=== PATIENT | male | born 1950 | race African-American/Black ===

== ENCOUNTER 2023-07-04 10:44 | Inpatient (IN) | payer MEDICARE ==
[~2023-07-04] VITALS: Ht 182.9 cm; Wt 79.8 kg
[2023-07-04] MEDS ORDERED: IV NS 0.9% 1,000 ML BAG IV ONE (11:30)
[2023-07-04 11:58] LABS: BASOPHILS % (AUTO) 0.7 % (0.0-2.0); EOSINOPHILS # (AUTO) 0.2 K/uL (0.0-0.7); HEMATOCRIT 44 % (39-51); HEMOGLOBIN 14.4 g/dL (13.5-17.5); LYMPHOCYTES # (AUTO) 0.6 K/uL (0.8-4.8); LYMPHOCYTES % (AUTO) 8.9 % (20.0-44.0); MEAN CORPUSCULAR HEMOGLOBIN 27 PG (26.0-33.0); MEAN CORPUSCULAR HGB CONC 33 g/dl (31.0-36.0); MEAN CORPUSCULAR VOLUME 81 fL (80-96); MONOCYTES # (AUTO) 0.8 K/uL (0.1-1.30); MONOCYTES % (AUTO) 12.1 % (2.0-12.0); NEUTROPHILS # (AUTO) 4.9 K/uL (1.8-8.9); NEUTROPHILS % (AUTO) 75.3 % (43.0-81.0); PLATELET COUNT (AUTO) 567 K/uL (150-450); RED BLOOD CELL COUNT(AUTO) 5.43 MIL/uL (4.5-6.0); RED CELL DISTRIBUTION WIDTH 15.2 % (11.5-15.0); WHITE BLOOD COUNT (AUTO) 6.5 K/uL (4.3-11.0)
[2023-07-04 12:07] LABS: CALCIUM, SERUM 8.8 mg/dL (8.5-10.1); CARBON DIOXIDE 32 mmol/L (21-32); CHLORIDE 99 mmol/L (98-107); CREATININE 1.4 mg/dL (0.6-1.3); GLUCOSE 131 mg/dL (74-106); SODIUM SERUM 135 mmol/L (136-145); UREA NITROGEN, BLOOD 19 mg/dL (7-18)
[2023-07-04 12:08] LABS: INR 1.07 (0.91-1.10); PROTHROMBIN TIME 11.3 SECS (9.2-11.1)
[2023-07-04 12:14] LABS: ALANINE AMINOTRANSFERASE 72 U/L (12-78); ALBUMIN 3.3 g/dL (3.4-5.0); ALKALINE PHOSPHATASE 92 U/L (46-116); ASPARTATE AMINOTRANSFERASE 110 U/L (15-37); BILIRUBIN,DIRECT 0.3 mg/dL (0.0-0.2); LIPASE 43 U/L (16-77); TOTAL PROTEIN, SERUM 7.7 g/dL (6.4-8.2)
[2023-07-04 12:15] LABS: POTASSIUM 2.8 mmol/L (3.5-5.1)
[2023-07-04 12:20] LABS: MAGNESIUM 2.2 mg/dL (1.8-2.4)
[2023-07-04 12:26] LABS: THYROID STIMULATING HORMONE 1.071 uIU/mL (0.358-3.74)
[2023-07-04] MEDS ORDERED: POTASSIUM CL. PREMIX PERIPHER. 200 ML ONE (12:27)
[2023-07-04] MEDS ORDERED: POTASSIUM CHLORIDE 20 MEQ TAB.PRT.SR PO ONE ×3 (12:30→22:18)
[2023-07-04] MEDS: POTASSIUM CL. PREMIX PERIPHER. 50 ML IV SCH ×4 (12:30→16:05)
[2023-07-04] MEDS ORDERED: CARV12.5 PO (13:16)
[2023-07-04] MEDS ORDERED: TAMS-12 PO (13:16)
[2023-07-04] MEDS ORDERED: ATOR20TA PO (13:16)
[2023-07-04] MEDS ORDERED: FURO-145 PO (13:16)
[2023-07-04] MEDS ORDERED: CHOL200059 PO (13:16)
[2023-07-04] MEDS ORDERED: FURO-144 PO (13:16)
[2023-07-04] MEDS ORDERED: CLON0.1T PO (13:16)
[2023-07-04] MEDS ORDERED: LOSA100T31 PO (13:16)
[2023-07-04] MEDS ORDERED: METH5TAB6 PO (13:16)
[2023-07-04] MEDS ORDERED: DONE5TAB34 PO (13:16)
[2023-07-04] MEDS ORDERED: NIFE-34 PO (13:16)
[2023-07-04] MEDS ORDERED: CLOP75TA15 PO (13:16)
[2023-07-04 13:49] LABS: APPEARANCE,URINE CLOUDY (CLEAR); BILIRUBIN,URINE NEGATIVE (NEGATIVE); BLOOD, URINE 2+ Ery/uL (NEGATIVE); COLOR,URINE DARK YELLOW (YELLOW); KETONES,URINE NEGATIVE (NEGATIVE); LEUKOCYTE ESTERASE ,URINE 3+ (NEGATIVE); NITRITE, URINE NEGATIVE (NEGATIVE); PH,URINE 6.5 (5.0-8.0); PROTEIN,URINE TRACE mg/dl (NEGATIVE); UGLUCOSE NEGATIVE (NEGATIVE)
[2023-07-04 14:00] LABS: ADD URINE CULTURE YES; BACTERIA,URINE Few /HPF (None Seen); SQUAMOUS EPITHELIAL CELL,UR Rare /HPF (None Seen); WBC,URINE 21-50 /HPF (0-3)
[2023-07-04] MEDS ORDERED: ENOXAPARIN SODIUM 80 MG/0.8 ML DISP.SYRIN SQ ONE ×2 (14:30→14:46)
[2023-07-04] MEDS ORDERED: CEFEPIME 1 GM in IV D5W 50 ML IV ONE (14:30)
[2023-07-04 17:04] VITALS: O2SAT 96
[2023-07-04] MEDS ORDERED: MAG HYDROX/AL HYDROX/SIMETH 30 ML UDC PO PRN (19:00)
[2023-07-04] MEDS ORDERED: ONDANSETRON HCL/PF 4 MG/2 ML VIAL IVP PRN (19:00)
[2023-07-04] MEDS ORDERED: Z GUARD REMEDY 4 OZ OINT TP PRN (19:00)
[2023-07-04] MEDS ORDERED: MAGNESIUM HYDROXIDE 30 ML UDC PO PRN (19:00)
[2023-07-04] MEDS ORDERED: CEFTRIAXONE 1 G in IV D5W 50 ML IV SCH (19:00)
[2023-07-04] MEDS ORDERED: ACETAMINOPHEN 325 MG TABLET PO PRN (19:00)
[2023-07-04 19:45] LABS: CHOLESTEROL 127 mg/dL (<200); HDL CHOLESTEROL 46 mg/dL (40-60); LDL 64 mg/dL (0-99); TRIGLYCERIDES 52 mg/dL (30-150)
[2023-07-04] MEDS: Potassium Chloride 40 MEQ in IV NS 0.9% 1,000 ML IV SCH (21:36)
[2023-07-04] MEDS: CLONIDINE HCL 0.1 MG TABLET PO SCH (21:38)
[2023-07-04] MEDS ORDERED: TAMSULOSIN 0.4 MG CAP.SR.24H PO SCH (22:00)
[2023-07-04] MEDS ORDERED: ATORVASTATIN 40 MG TABLET PO SCH (22:00)
[2023-07-04] MEDS ORDERED: DONEPEZIL 5 MG TABLET PO SCH (22:00)
[2023-07-04] MEDS ORDERED: NIFEDIPINE XL 60 MG TAB.ER.24 PO SCH (22:00)
[2023-07-04] MEDS: POTASSIUM CHLORIDE 20 MEQ TAB.PRT.SR PO SCH ×2 (22:20→23:39)
[2023-07-05] MEDS: POTASSIUM CHLORIDE 20 MEQ TAB.PRT.SR PO SCH (00:56)
[2023-07-05] MEDS ORDERED: hydrALAZINE HCL IV 20 MG VIAL IV PRN (05:30)
[2023-07-05 06:31] VITALS: BP 154/93; TEMP 98; O2SAT 100
[2023-07-05 07:00] VITALS: BP 135/65; TEMP 98.2; O2SAT 100
[2023-07-05] MEDS ORDERED: PANTOPRAZOLE 40 MG TABLET.DR PO SCH (07:30)
[2023-07-05 07:44] LABS: ALBUMIN 2.6 g/dL (3.4-5.0); BILIRUBIN,TOTAL 0.7 mg/dL (0.2-1.0); CALCIUM, SERUM 8.1 mg/dL (8.5-10.1); CREATININE 1.2 mg/dL (0.6-1.3); MAGNESIUM 2.2 mg/dL (1.8-2.4); PHOSPHORUS 3.9 mg/dL (2.5-4.9); TOTAL PROTEIN, SERUM 6.3 g/dL (6.4-8.2)
[2023-07-05 07:47] LABS: BASOPHILS # (AUTO) 0.1 K/uL (0.0-0.2); BASOPHILS % (AUTO) 0.9 % (0.0-2.0); EOSINOPHILS # (AUTO) 0.3 K/uL (0.0-0.7); EOSINOPHILS % (AUTO) 4.9 % (0.0-6.0); HEMATOCRIT 40 % (39-51); HEMOGLOBIN 12.6 g/dL (13.5-17.5); LYMPHOCYTES # (AUTO) 0.9 K/uL (0.8-4.8); LYMPHOCYTES % (AUTO) 14.6 % (20.0-44.0); MEAN CORPUSCULAR HEMOGLOBIN 26 PG (26.0-33.0); MEAN CORPUSCULAR HGB CONC 32 g/dl (31.0-36.0); MEAN CORPUSCULAR VOLUME 83 fL (80-96); MONOCYTES # (AUTO) 0.9 K/uL (0.1-1.30); MONOCYTES % (AUTO) 14.3 % (2.0-12.0); NEUTROPHILS % (AUTO) 65.3 % (43.0-81.0); PLATELET COUNT (AUTO) 535 K/uL (150-450); RED BLOOD CELL COUNT(AUTO) 4.83 MIL/uL (4.5-6.0); WHITE BLOOD COUNT (AUTO) 6.1 K/uL (4.3-11.0)
[2023-07-05] MEDS: Potassium Chloride 40 MEQ in IV NS 0.9% 1,000 ML IV SCH (07:47)
[2023-07-05] MEDS: CLONIDINE HCL 0.1 MG TABLET PO SCH ×3 (08:17→16:08)
[2023-07-05] MEDS: CARVEDILOL 12.5 MG TABLET PO SCH ×2 (08:18→16:08)
[2023-07-05] MEDS ORDERED: CLOPIDOGREL BISULFATE 75 MG TABLET PO SCH (09:00)
[2023-07-05] MEDS ORDERED: LOSARTAN POTASSIUM 50 MG TABLET PO SCH (09:00)
[2023-07-05] MEDS ORDERED: METHIMAZOLE (5MG) 5 MG TABLET PO SCH (09:00)
[2023-07-05] MEDS ORDERED: CEFT1VIA15 IV (13:18)
[2023-07-05] MEDS ORDERED: PANT40TA49 PO (13:18)
[2023-07-05 16:00] VITALS: BP 127/57; TEMP 99.1; O2SAT 100
[2023-07-05 16:08] VITALS: BP 120/60
== END 2023-07-05 18:00 | disposition short-term general hospital (02) | DRG 643 ==
LOC: ER 10:46 → TELE 18:37
PROVIDERS: ADMIT Nurse Practitioner Acute Care; ATTEND Nurse Practitioner Acute Care
DX: E07.89 Other specified disorders of thyroid (principal); I21.4 Non-ST elevation (NSTEMI) myocardial infarction; N39.0 Urinary tract infection, site not specified; E87.1 Hypo-osmolality and hyponatremia; N17.9 Acute kidney failure, unspecified; I50.32 Chronic diastolic (congestive) heart failure; I69.351 Hemiplegia and hemiparesis following cerebral infarction affecting right dominant side; E05.90 Thyrotoxicosis, unspecified without thyrotoxic crisis or storm; I11.0 Hypertensive heart disease with heart failure; D75.838 Other thrombocytosis; E87.6 Hypokalemia; E88.09 Other disorders of plasma-protein metabolism, not elsewhere classified; I69.320 Aphasia following cerebral infarction; R74.01 Elevation of levels of liver transaminase levels; F03.90 Unspecified dementia, unspecified severity, without behavioral disturbance, psychotic disturbance, mood disturbance, and anxiety; R60.9 Edema, unspecified; J39.8 Other specified diseases of upper respiratory tract; M89.8X8 Other specified disorders of bone, other site
CPT/HCPCS: 36415; 70490-TC; 71045-TC; 71250-TC; 80048-TC; 80053-TC; 80061-TC; 80076-TC; 81001; 83690-TC; 83735-TC; 83880; 84100-TC; 84439-TC; 84443-TC; 84484-TC; 85025-TC; 85730-TC; 87086-TC; 93307-TC; 93971-TC; 97112-TC; 97530-TC; A4223; A4349; G0378; J0692; J0696; J1650; J3480; J7030; J7060

== ENCOUNTER 2023-07-07 16:20 | Inpatient (IN) | payer MEDICARE ==
[~2023-07-07] VITALS: Ht 170.2 cm; Wt 80.3 kg
[~2023-07-07 16:20] MED LIST: ATOR20TA PO; CARV12.5 PO; CEFT1VIA15 IV; CHOL200059 PO; CLON0.1T PO; CLOP75TA15 PO; DONE5TAB34 PO; FURO-145 PO; LOSA100T31 PO; METH5TAB6 PO; NIFE-34 PO; PANT40TA49 PO; TAMS-12 PO
[2023-07-07 16:45] VITALS: BP 112/11; TEMP 98.3; O2SAT 98
[2023-07-07 16:46] VITALS: BP 124/112; TEMP 98.3; O2SAT 98
[2023-07-07] MEDS ORDERED: ALEN70TA80 PO (16:49)
[2023-07-07 19:04] VITALS: BP 120/90; TEMP 98.3; O2SAT 89
[2023-07-07 19:05] VITALS: O2SAT 96
[2023-07-07] MEDS ORDERED: ACETAMINOPHEN 325 MG TABLET PO PRN (20:30)
[2023-07-07] MEDS ORDERED: Z GUARD REMEDY 4 OZ OINT TP PRN (20:30)
[2023-07-07] MEDS ORDERED: ONDANSETRON HCL/PF 4 MG/2 ML VIAL IVP PRN (20:30)
[2023-07-07] MEDS: ENOXAPARIN SODIUM 40 MG/0.4 ML DISP.SYRIN SQ SCH (21:00)
[2023-07-07] MEDS: CEPHALEXIN MONOHYDRATE 250 MG CAPSULE PO SCH (21:00)
[2023-07-07] MEDS: ATORVASTATIN 10 MG TABLET PO SCH (22:18)
[2023-07-07] MEDS: DONEPEZIL 5 MG TABLET PO SCH (22:19)
[2023-07-08 00:08] LABS: BASOPHILS # (AUTO) 0.1 K/uL (0.0-0.2); BASOPHILS % (AUTO) 2.3 % (0.0-2.0); EOSINOPHILS # (AUTO) 0.4 K/uL (0.0-0.7); HEMATOCRIT 38 % (39-51); HEMOGLOBIN 12.2 g/dL (13.5-17.5); LYMPHOCYTES # (AUTO) 0.6 K/uL (0.8-4.8); MEAN CORPUSCULAR HEMOGLOBIN 26 PG (26.0-33.0); MEAN CORPUSCULAR HGB CONC 32 g/dl (31.0-36.0); MEAN CORPUSCULAR VOLUME 83 fL (80-96); MONOCYTES # (AUTO) 0.5 K/uL (0.1-1.30); MONOCYTES % (AUTO) 8.8 % (2.0-12.0); NEUTROPHILS # (AUTO) 4.5 K/uL (1.8-8.9); NEUTROPHILS % (AUTO) 72.9 % (43.0-81.0); PLATELET COUNT (AUTO) 485 K/uL (150-450); RED BLOOD CELL COUNT(AUTO) 4.62 MIL/uL (4.5-6.0); RED CELL DISTRIBUTION WIDTH 15.4 % (11.5-15.0); WHITE BLOOD COUNT (AUTO) 6.2 K/uL (4.3-11.0)
[2023-07-08] MEDS: CEPHALEXIN MONOHYDRATE 250 MG CAPSULE PO SCH ×3 (05:00→21:08)
[2023-07-08] MEDS ORDERED: hydrALAZINE HCL IV 20 MG VIAL IV PRN (06:30)
[2023-07-08] MEDS ORDERED: ALENDRONATE 70 MG TABLET PO SCH (07:30)
[2023-07-08 07:41] LABS: BASOPHILS # (AUTO) 0.1 K/uL (0.0-0.2); BASOPHILS % (AUTO) 0.9 % (0.0-2.0); EOSINOPHILS # (AUTO) 0.3 K/uL (0.0-0.7); EOSINOPHILS % (AUTO) 4.4 % (0.0-6.0); HEMATOCRIT 39 % (39-51); HEMOGLOBIN 12.7 g/dL (13.5-17.5); LYMPHOCYTES # (AUTO) 0.8 K/uL (0.8-4.8); LYMPHOCYTES % (AUTO) 12.7 % (20.0-44.0); MEAN CORPUSCULAR HEMOGLOBIN 27 PG (26.0-33.0); MEAN CORPUSCULAR HGB CONC 32 g/dl (31.0-36.0); MEAN CORPUSCULAR VOLUME 82 fL (80-96); MONOCYTES # (AUTO) 0.6 K/uL (0.1-1.30); MONOCYTES % (AUTO) 9.1 % (2.0-12.0); NEUTROPHILS # (AUTO) 4.6 K/uL (1.8-8.9); NEUTROPHILS % (AUTO) 72.9 % (43.0-81.0); PLATELET COUNT (AUTO) 505 K/uL (150-450); RED BLOOD CELL COUNT(AUTO) 4.79 MIL/uL (4.5-6.0); RED CELL DISTRIBUTION WIDTH 14.9 % (11.5-15.0); WHITE BLOOD COUNT (AUTO) 6.3 K/uL (4.3-11.0)
[2023-07-08 08:00] VITALS: BP 119/76; TEMP 97.9; O2SAT 98
[2023-07-08 08:15] LABS: CALCIUM, SERUM 8.7 mg/dL (8.5-10.1); PHOSPHORUS 3.5 mg/dL (2.5-4.9); POTASSIUM 3.3 mmol/L (3.5-5.1)
[2023-07-08] MEDS: METHIMAZOLE (5MG) 5 MG TABLET PO SCH (08:31)
[2023-07-08] MEDS: TAMSULOSIN 0.4 MG CAP.SR.24H PO SCH (08:31)
[2023-07-08] MEDS: CLOPIDOGREL BISULFATE 75 MG TABLET PO SCH (08:31)
[2023-07-08] MEDS: LOSARTAN POTASSIUM 50 MG TABLET PO SCH (09:00)
[2023-07-08] MEDS: CARVEDILOL 12.5 MG TABLET PO SCH ×2 (09:00→17:44)
[2023-07-08] MEDS: NIFEdipine XL (30MG) 30 MG TAB PO SCH ×2 (09:00→14:55)
[2023-07-08] MEDS: CLONIDINE HCL 0.1 MG TABLET PO SCH ×3 (09:00→17:45)
[2023-07-08] MEDS ORDERED: POTASSIUM CHLORIDE 20 MEQ TAB.PRT.SR PO SCH (11:30)
[2023-07-08] MEDS ORDERED: Cephalexin Monohydrate PO (12:46)
[2023-07-08] MEDS: FUROSEMIDE 20 MG TABLET PO SCH (13:12)
[2023-07-08 13:50] VITALS: BP 197/107; TEMP 97.8; O2SAT 95
[2023-07-08] MEDS ORDERED: hydrALAZINE HCL IV 20 MG VIAL IV ONE (14:00)
[2023-07-08 15:04] VITALS: BP 167/104; TEMP 97.8; O2SAT 97
[2023-07-08 15:58] VITALS: BP 167/104; TEMP 97.5; O2SAT 98
[2023-07-08 20:00] VITALS: BP 135/68; TEMP 98.6; O2SAT 100
[2023-07-08] MEDS: ATORVASTATIN 10 MG TABLET PO SCH (21:08)
[2023-07-08] MEDS: DONEPEZIL 5 MG TABLET PO SCH (21:08)
[2023-07-08] MEDS: ENOXAPARIN SODIUM 40 MG/0.4 ML DISP.SYRIN SQ SCH (21:11)
[2023-07-09 04:00] VITALS: BP 155/71; TEMP 97.5; O2SAT 97
[2023-07-09] MEDS: CEPHALEXIN MONOHYDRATE 250 MG CAPSULE PO SCH ×3 (04:09→22:12)
[2023-07-09] MEDS: CLONIDINE HCL 0.1 MG TABLET PO SCH ×3 (08:37→17:06)
[2023-07-09] MEDS: CARVEDILOL 12.5 MG TABLET PO SCH ×2 (08:37→17:05)
[2023-07-09] MEDS: CLOPIDOGREL BISULFATE 75 MG TABLET PO SCH (08:37)
[2023-07-09] MEDS: TAMSULOSIN 0.4 MG CAP.SR.24H PO SCH (08:37)
[2023-07-09] MEDS: METHIMAZOLE (5MG) 5 MG TABLET PO SCH (08:38)
[2023-07-09] MEDS: LOSARTAN POTASSIUM 50 MG TABLET PO SCH (08:38)
[2023-07-09] MEDS: NIFEdipine XL (30MG) 30 MG TAB PO SCH (08:38)
[2023-07-09 12:00] VITALS: BP 159/78; TEMP 98.4; O2SAT 97
[2023-07-09] MEDS: FUROSEMIDE 20 MG TABLET PO SCH (13:00)
[2023-07-09 20:00] VITALS: BP 110/81; TEMP 98.4; O2SAT 97
[2023-07-09] MEDS: DONEPEZIL 5 MG TABLET PO SCH (22:12)
[2023-07-09] MEDS: ATORVASTATIN 10 MG TABLET PO SCH (22:12)
[2023-07-09] MEDS: ENOXAPARIN SODIUM 40 MG/0.4 ML DISP.SYRIN SQ SCH (22:17)
[2023-07-10 04:00] VITALS: BP 108/69; TEMP 98.2; O2SAT 97
[2023-07-10] MEDS: CEPHALEXIN MONOHYDRATE 250 MG CAPSULE PO SCH ×2 (04:53→13:12)
[2023-07-10 08:00] VITALS: BP 165/80; TEMP 98.6; O2SAT 96
[2023-07-10] MEDS: CLOPIDOGREL BISULFATE 75 MG TABLET PO SCH (09:51)
[2023-07-10] MEDS: NIFEdipine XL (30MG) 30 MG TAB PO SCH (09:51)
[2023-07-10] MEDS: LOSARTAN POTASSIUM 50 MG TABLET PO SCH (09:51)
[2023-07-10] MEDS: CARVEDILOL 12.5 MG TABLET PO SCH ×2 (09:52→16:00)
[2023-07-10] MEDS: CLONIDINE HCL 0.1 MG TABLET PO SCH ×3 (09:52→16:01)
[2023-07-10] MEDS: TAMSULOSIN 0.4 MG CAP.SR.24H PO SCH (09:52)
[2023-07-10] MEDS: METHIMAZOLE (5MG) 5 MG TABLET PO SCH (10:25)
[2023-07-10 10:30] VITALS: BP 145/80
[2023-07-10] MEDS: FUROSEMIDE 20 MG TABLET PO SCH (13:13)
[2023-07-10] MEDS ORDERED: hydrALAZINE HCL IV 20 MG VIAL IV ONE (17:30)
[2023-07-10 18:00] VITALS: BP 165/79; TEMP 98.1; O2SAT 96
== END 2023-07-10 18:10 | DRG 644 ==
LOC: MEDSG1 16:33
PROVIDERS: ADMIT Nurse Practitioner Acute Care; ATTEND Nurse Practitioner Acute Care
DX: E07.89 Other specified disorders of thyroid (principal); I50.32 Chronic diastolic (congestive) heart failure; N39.0 Urinary tract infection, site not specified; I69.351 Hemiplegia and hemiparesis following cerebral infarction affecting right dominant side; J39.8 Other specified diseases of upper respiratory tract; D75.838 Other thrombocytosis; E78.5 Hyperlipidemia, unspecified; E87.6 Hypokalemia; E88.09 Other disorders of plasma-protein metabolism, not elsewhere classified; I11.0 Hypertensive heart disease with heart failure; N40.0 Benign prostatic hyperplasia without lower urinary tract symptoms; E03.9 Hypothyroidism, unspecified; R60.9 Edema, unspecified; I25.2 Old myocardial infarction; B95.2 Enterococcus as the cause of diseases classified elsewhere; E05.90 Thyrotoxicosis, unspecified without thyrotoxic crisis or storm; R74.01 Elevation of levels of liver transaminase levels; I69.320 Aphasia following cerebral infarction; M89.8X8 Other specified disorders of bone, other site; Z20.822 Contact with and (suspected) exposure to COVID-19
CPT/HCPCS: 36415; 80048-TC; 83735-TC; 84100-TC; 85025-TC; 87081-TC; G0378; J0360; J1650

== ENCOUNTER 2023-09-24 00:14 | Inpatient (IN) | payer MEDICARE, OTHER ==
[~2023-09-24] VITALS: Ht 170.2 cm; Wt 59.4 kg
[~2023-09-24 00:14] MED LIST changes: +ALEN70TA80 PO; -CEFT1VIA15 IV; -CHOL200059 PO; +Cephalexin Monohydrate PO; -PANT40TA49 PO
[2023-09-24 01:08] LABS: BASOPHILS % (AUTO) 0.8 % (0.0-2.0); EOSINOPHILS # (AUTO) 0.6 K/uL (0.0-0.7); EOSINOPHILS % (AUTO) 10.8 % (0.0-6.0); HEMATOCRIT 43 % (39-51); HEMOGLOBIN 13.5 g/dL (13.5-17.5); LYMPHOCYTES # (AUTO) 0.7 K/uL (0.8-4.8); LYMPHOCYTES % (AUTO) 12.8 % (20.0-44.0); MEAN CORPUSCULAR HEMOGLOBIN 25 PG (26.0-33.0); MEAN CORPUSCULAR HGB CONC 31 g/dl (31.0-36.0); MEAN CORPUSCULAR VOLUME 79 fL (80-96); MONOCYTES # (AUTO) 0.5 K/uL (0.1-1.30); MONOCYTES % (AUTO) 8.6 % (2.0-12.0); NEUTROPHILS # (AUTO) 3.9 K/uL (1.8-8.9); PLATELET COUNT (AUTO) 430 K/uL (150-450); RED BLOOD CELL COUNT(AUTO) 5.43 MIL/uL (4.5-6.0); RED CELL DISTRIBUTION WIDTH 17.2 % (11.5-15.0); WHITE BLOOD COUNT (AUTO) 5.8 K/uL (4.3-11.0)
[2023-09-24] MEDS ORDERED: LIDOCAINE 2% JEL UROJET 10 ML MM ONE (01:16)
[2023-09-24 01:20] LABS: CALCIUM, SERUM 8.4 mg/dL (8.5-10.1); CARBON DIOXIDE 31 mmol/L (21-32); CHLORIDE 105 mmol/L (98-107); CREATININE 1.2 mg/dL (0.6-1.3); GLUCOSE 88 mg/dL (74-106); SODIUM SERUM 144 mmol/L (136-145); UREA NITROGEN, BLOOD 18 mg/dL (7-18)
[2023-09-24 01:25] LABS: ALANINE AMINOTRANSFERASE 75 U/L (12-78); ALBUMIN 2.8 g/dL (3.4-5.0); ALKALINE PHOSPHATASE 85 U/L (46-116); ASPARTATE AMINOTRANSFERASE 39 U/L (15-37); BILIRUBIN,TOTAL 0.8 mg/dL (0.2-1.0)
[2023-09-24 01:28] LABS: LACTIC ACID 1.3 mmol/L (0.4-2.0)
[2023-09-24 01:54] LABS: APPEARANCE,URINE TURBID (CLEAR); BILIRUBIN,URINE NEGATIVE (NEGATIVE); BLOOD, URINE 3+ Ery/uL (NEGATIVE); COLOR,URINE RED (YELLOW); KETONES,URINE TRACE mg/dL (NEGATIVE); LEUKOCYTE ESTERASE ,URINE 2+ (NEGATIVE); NITRITE, URINE POSITIVE (NEGATIVE); PH,URINE 6.5 (5.0-8.0); PROTEIN,URINE 3+ mg/dl (NEGATIVE); UGLUCOSE TRACE mg/dL (NEGATIVE)
[2023-09-24 01:55] LABS: ADD URINE CULTURE YES; BACTERIA,URINE Few /HPF (None Seen); RBC,URINE TOO NUMEROUS TO COUN /HPF (0-2); SQUAMOUS EPITHELIAL CELL,UR Moderate /HPF (None Seen); WBC,URINE 21-50 /HPF (0-3)
[2023-09-24] MEDS ORDERED: CEFTRIAXONE 1GM BAG (ER ONLY) 50 ML IV ONE (02:28)
[2023-09-24] MEDS ORDERED: POTASSIUM CHLORIDE 20 MEQ TAB.PRT.SR PO ONE (02:28)
[2023-09-24] MEDS: POTASSIUM CHLORIDE 20 MEQ TAB.PRT.SR PO ONE (02:40)
[2023-09-24] MEDS: CEFTRIAXONE 1 G in IV D5W 50 ML IV ONE (02:40)
[2023-09-24] MEDS ORDERED: MAGNESIUM HYDROXIDE 30 ML UDC PO PRN (05:00)
[2023-09-24] MEDS ORDERED: ONDANSETRON HCL/PF 4 MG/2 ML VIAL IVP PRN (05:00)
[2023-09-24] MEDS ORDERED: ALENDRONATE 70 MG TABLET PO SCH (05:00)
[2023-09-24] MEDS ORDERED: Z GUARD REMEDY 4 OZ OINT TP PRN (05:00)
[2023-09-24] MEDS ORDERED: MAG HYDROX/AL HYDROX/SIMETH 30 ML UDC PO PRN (05:00)
[2023-09-24] MEDS ORDERED: CLON0.3P TD (07:47)
[2023-09-24] MEDS ORDERED: BISA10SU11 RC (07:47)
[2023-09-24] MEDS ORDERED: ACET-868 PO (07:47)
[2023-09-24] MEDS ORDERED: AMIN30LI66 PO (07:47)
[2023-09-24] MEDS ORDERED: FURO-144 PO (07:47)
[2023-09-24] MEDS ORDERED: APIX5TAB PO (07:47)
[2023-09-24] MEDS ORDERED: ASPI-1169 PO (07:47)
[2023-09-24] MEDS ORDERED: CEPH500T PO (07:47)
[2023-09-24] MEDS ORDERED: CRAN3875 PO (07:47)
[2023-09-24 09:00] VITALS: BP 161/94; TEMP 98.2; O2SAT 98
[2023-09-24] MEDS: PANTOPRAZOLE 40 MG VIAL IV SCH (09:57)
[2023-09-24] MEDS: CARVEDILOL 12.5 MG TABLET PO SCH (09:58)
[2023-09-24] MEDS: METHIMAZOLE (5MG) 5 MG TABLET PO SCH (09:58)
[2023-09-24] MEDS: LOSARTAN POTASSIUM 50 MG TABLET PO SCH (09:59)
[2023-09-24] MEDS: ATORVASTATIN 10 MG TABLET PO SCH (09:59)
[2023-09-24 16:28] VITALS: BP 123/56; TEMP 98.3; O2SAT 99
[2023-09-24 20:00] VITALS: BP 121/67; TEMP 99; O2SAT 97
[2023-09-24] MEDS: ACETAMINOPHEN 325 MG TABLET PO PRN (20:23)
[2023-09-24] MEDS: FUROSEMIDE 20 MG TABLET PO SCH (21:16)
[2023-09-24] MEDS: NIFEDIPINE XL 60 MG TAB.ER.24 PO SCH (21:16)
[2023-09-24] MEDS: TAMSULOSIN 0.4 MG CAP.SR.24H PO SCH (21:16)
[2023-09-24] MEDS: DONEPEZIL 5 MG TABLET PO SCH (21:16)
[2023-09-24] MEDS ORDERED: ZOLPIDEM TARTRATE 5 MG TABLET PO PRN (22:00)
[2023-09-25] MEDS: CEFTRIAXONE 1 G in IV D5W 50 ML IV SCH (02:17)
[2023-09-25 07:00] VITALS: BP 123/58; TEMP 98.8; O2SAT 98
[2023-09-25 07:14] LABS: BASOPHILS % (AUTO) 0.7 % (0.0-2.0); EOSINOPHILS # (AUTO) 0.5 K/uL (0.0-0.7); HEMATOCRIT 38 % (39-51); HEMOGLOBIN 12.3 g/dL (13.5-17.5); LYMPHOCYTES # (AUTO) 0.9 K/uL (0.8-4.8); LYMPHOCYTES % (AUTO) 18.8 % (20.0-44.0); MEAN CORPUSCULAR HEMOGLOBIN 25 PG (26.0-33.0); MEAN CORPUSCULAR HGB CONC 33 g/dl (31.0-36.0); MEAN CORPUSCULAR VOLUME 77 fL (80-96); MONOCYTES # (AUTO) 0.5 K/uL (0.1-1.30); MONOCYTES % (AUTO) 9.4 % (2.0-12.0); NEUTROPHILS # (AUTO) 2.9 K/uL (1.8-8.9); NEUTROPHILS % (AUTO) 60.1 % (43.0-81.0); PLATELET COUNT (AUTO) 414 K/uL (150-450); RED BLOOD CELL COUNT(AUTO) 4.85 MIL/uL (4.5-6.0); RED CELL DISTRIBUTION WIDTH 17.2 % (11.5-15.0); WHITE BLOOD COUNT (AUTO) 4.8 K/uL (4.3-11.0)
[2023-09-25 07:50] LABS: CREATININE 1.2 mg/dL (0.6-1.3); MAGNESIUM 1.9 mg/dL (1.8-2.4); PHOSPHORUS 3.4 mg/dL (2.5-4.9)
[2023-09-25 08:01] LABS: POTASSIUM 2.6 mmol/L (3.5-5.1)
[2023-09-25] MEDS: PANTOPRAZOLE 40 MG TABLET.DR PO SCH (08:35)
[2023-09-25] MEDS: POTASSIUM CL. PREMIX PERIPHER. 50 ML IV SCH ×4 (11:10→14:34)
[2023-09-25] MEDS: POTASSIUM CHLORIDE 20 MEQ TAB.PRT.SR PO ONE ×2 (14:30→16:31)
[2023-09-25] MEDS ORDERED: POTASSIUM CHLORIDE 20 MEQ TAB.PRT.SR PO SCH (15:30)
[2023-09-25] MEDS: POTASSIUM CHLORIDE 20 MEQ TAB.PRT.SR PO SCH (15:35)
[2023-09-25 16:00] VITALS: BP 141/95; TEMP 97.5; O2SAT 100
[2023-09-25 20:00] VITALS: BP 124/62; TEMP 98.6; O2SAT 96
[2023-09-26 07:17] LABS: BASOPHILS % (AUTO) 0.6 % (0.0-2.0); EOSINOPHILS # (AUTO) 0.4 K/uL (0.0-0.7); EOSINOPHILS % (AUTO) 6.9 % (0.0-6.0); HEMATOCRIT 34 % (39-51); HEMOGLOBIN 11.3 g/dL (13.5-17.5); LYMPHOCYTES # (AUTO) 0.9 K/uL (0.8-4.8); LYMPHOCYTES % (AUTO) 15.6 % (20.0-44.0); MEAN CORPUSCULAR HEMOGLOBIN 26 PG (26.0-33.0); MEAN CORPUSCULAR HGB CONC 33 g/dl (31.0-36.0); MEAN CORPUSCULAR VOLUME 77 fL (80-96); MONOCYTES # (AUTO) 0.5 K/uL (0.1-1.30); MONOCYTES % (AUTO) 8.7 % (2.0-12.0); NEUTROPHILS # (AUTO) 4.1 K/uL (1.8-8.9); NEUTROPHILS % (AUTO) 68.2 % (43.0-81.0); PLATELET COUNT (AUTO) 421 K/uL (150-450); RED BLOOD CELL COUNT(AUTO) 4.38 MIL/uL (4.5-6.0); RED CELL DISTRIBUTION WIDTH 17.4 % (11.5-15.0)
[2023-09-26 08:30] VITALS: BP 88/54; TEMP 98.1; O2SAT 94
[2023-09-26 08:58] LABS: CARBON DIOXIDE 29 mmol/L (21-32); CHLORIDE 102 mmol/L (98-107); GLUCOSE 101 mg/dL (74-106); SODIUM SERUM 139 mmol/L (136-145); UREA NITROGEN, BLOOD 12 mg/dL (7-18)
[2023-09-26 09:01] LABS: POTASSIUM 2.8 mmol/L (3.5-5.1)
[2023-09-26] MEDS: POTASSIUM CHLORIDE 20 MEQ POWDER PACKET PO SCH ×2 (11:28→13:50)
[2023-09-26] MEDS: SOD FERRIC GLUC 125 MG in IV NS 0.9% 100 ML IV SCH (13:50)
[2023-09-26 16:00] VITALS: BP_SYST 109; BP_SYST 92; BP_DIAS 57; BP_DIAS 66; TEMP 99; O2SAT 98
[2023-09-26 20:00] VITALS: BP 117/59; TEMP 99; TEMP 99.5; O2SAT 97
[2023-09-27 07:58] LABS: BASOPHILS % (AUTO) 0.8 % (0.0-2.0); EOSINOPHILS # (AUTO) 0.5 K/uL (0.0-0.7); EOSINOPHILS % (AUTO) 9.1 % (0.0-6.0); HEMATOCRIT 37 % (39-51); HEMOGLOBIN 12.2 g/dL (13.5-17.5); LYMPHOCYTES # (AUTO) 0.7 K/uL (0.8-4.8); LYMPHOCYTES % (AUTO) 13.2 % (20.0-44.0); MEAN CORPUSCULAR HEMOGLOBIN 26 PG (26.0-33.0); MEAN CORPUSCULAR HGB CONC 33 g/dl (31.0-36.0); MEAN CORPUSCULAR VOLUME 78 fL (80-96); MONOCYTES # (AUTO) 0.5 K/uL (0.1-1.30); MONOCYTES % (AUTO) 8.6 % (2.0-12.0); NEUTROPHILS # (AUTO) 3.7 K/uL (1.8-8.9); NEUTROPHILS % (AUTO) 68.3 % (43.0-81.0); PLATELET COUNT (AUTO) 496 K/uL (150-450); RED BLOOD CELL COUNT(AUTO) 4.77 MIL/uL (4.5-6.0); RED CELL DISTRIBUTION WIDTH 17.6 % (11.5-15.0); WHITE BLOOD COUNT (AUTO) 5.5 K/uL (4.3-11.0)
[2023-09-27 08:00] VITALS: BP 148/66; TEMP 98.6; O2SAT 98
[2023-09-27 08:16] LABS: CALCIUM, SERUM 8.5 mg/dL (8.5-10.1); CREATININE 1.1 mg/dL (0.6-1.3); POTASSIUM 3.5 mmol/L (3.5-5.1)
[2023-09-27] MEDS ORDERED: CEFT1VIA15 IV (09:07)
[2023-09-27 09:41] VITALS: BP 148/66
== END 2023-09-27 15:00 | DRG 699 ==
LOC: ER 00:24 → MED 08:23
PROVIDERS: ATTEND Nurse Practitioner Acute Care
DX: T83.021A Displacement of indwelling urethral catheter, initial encounter (principal); I69.351 Hemiplegia and hemiparesis following cerebral infarction affecting right dominant side; N39.0 Urinary tract infection, site not specified; I11.0 Hypertensive heart disease with heart failure; I50.9 Heart failure, unspecified; Y84.6 Urinary catheterization as the cause of abnormal reaction of the patient, or of later complication, without mention of misadventure at the time of the procedure; Y92.129 Unspecified place in nursing home as the place of occurrence of the external cause; M81.0 Age-related osteoporosis without current pathological fracture; F03.90 Unspecified dementia, unspecified severity, without behavioral disturbance, psychotic disturbance, mood disturbance, and anxiety; E05.90 Thyrotoxicosis, unspecified without thyrotoxic crisis or storm; D50.9 Iron deficiency anemia, unspecified; E78.00 Pure hypercholesterolemia, unspecified; E87.6 Hypokalemia; I25.10 Atherosclerotic heart disease of native coronary artery without angina pectoris; K57.30 Diverticulosis of large intestine without perforation or abscess without bleeding; B96.89 Other specified bacterial agents as the cause of diseases classified elsewhere; Z79.02 Long term (current) use of antithrombotics/antiplatelets; Z79.899 Other long term (current) drug therapy; Z86.718 Personal history of other venous thrombosis and embolism; Z79.83 Long term (current) use of bisphosphonates; R31.9 Hematuria, unspecified
CPT/HCPCS: 36415; 80048-TC; 80053-TC; 81001; 83605-TC; 83735-TC; 84100-TC; 85025-TC; 87040-TC; 87081-TC; 87086-TC; A4217; A4223; C9113; G0378; J0696; J2916; J3480; J3490; J7030; J7040; J7050; J7060

== ENCOUNTER 2023-10-10 19:31 | Inpatient (IN) | payer MEDICARE, OTHER ==
[~2023-10-10] VITALS: Ht 170.2 cm; Wt 58.2 kg
[~2023-10-10 19:31] MED LIST changes: +ACET-868 PO; -ALEN70TA80 PO; +AMIN30LI66 PO; +APIX5TAB PO; +ASPI-1169 PO; +BISA10SU11 RC; +CEFT1VIA15 IV; -CLON0.1T PO; +CLON0.3P TD; +CRAN3875 PO; -Cephalexin Monohydrate PO; +FURO-144 PO
[2023-10-10 20:25] LABS: BASOPHILS % (AUTO) 0.2 % (0.0-2.0); HEMATOCRIT 46 % (39-51); HEMOGLOBIN 14.1 g/dL (13.5-17.5); LYMPHOCYTES # (AUTO) 0.6 K/uL (0.8-4.8); LYMPHOCYTES % (AUTO) 5.3 % (20.0-44.0); MEAN CORPUSCULAR HEMOGLOBIN 24 PG (26.0-33.0); MEAN CORPUSCULAR HGB CONC 31 g/dl (31.0-36.0); MEAN CORPUSCULAR VOLUME 79 fL (80-96); MONOCYTES # (AUTO) 0.8 K/uL (0.1-1.30); MONOCYTES % (AUTO) 6.8 % (2.0-12.0); NEUTROPHILS # (AUTO) 10.4 K/uL (1.8-8.9); NEUTROPHILS % (AUTO) 87.7 % (43.0-81.0); PLATELET COUNT (AUTO) 668 K/uL (150-450); RED BLOOD CELL COUNT(AUTO) 5.77 MIL/uL (4.5-6.0); WHITE BLOOD COUNT (AUTO) 11.8 K/uL (4.3-11.0)
[2023-10-10] MEDS: IV NS 0.9% 500 ML BAG IV ONE (20:26)
[2023-10-10 20:39] LABS: INR 1.08 (0.91-1.10); PARTIAL THROMBOPLASTIN TIME 30.7 SEC (24.3-34.3); PROTHROMBIN TIME 11.1 SECS (9.2-11.1)
[2023-10-10 20:48] LABS: ALANINE AMINOTRANSFERASE 33 U/L (12-78); ALBUMIN 2.9 g/dL (3.4-5.0); ALKALINE PHOSPHATASE 74 U/L (46-116); ASPARTATE AMINOTRANSFERASE 17 U/L (15-37); BILIRUBIN,DIRECT 0.2 mg/dL (0.0-0.2); BILIRUBIN,TOTAL 0.5 mg/dL (0.2-1.0); CARBON DIOXIDE 23 mmol/L (21-32); CHLORIDE 111 mmol/L (98-107); CREATININE 1.5 mg/dL (0.6-1.3); GLUCOSE 163 mg/dL (74-106); POTASSIUM 3.5 mmol/L (3.5-5.1); SODIUM SERUM 144 mmol/L (136-145); TOTAL PROTEIN, SERUM 7.2 g/dL (6.4-8.2); UREA NITROGEN, BLOOD 38 mg/dL (7-18)
[2023-10-10 21:29] LABS: CALCIUM, SERUM 9.1 mg/dL (8.5-10.1)
[2023-10-10 21:55] LABS: ANISOCYTOSIS 1+; LYMPHOCYTES % (MANUAL) 7 % (16-48); MONOCYTES % (MANUAL) 10 % (0-11.0); NEUTROPHILS % (MANUAL) 83 (42-76); PLATELET ESTIMATE INCREASED
[2023-10-10 21:56] LABS: OVALOCYTES 1+
[2023-10-10 23:05] VITALS: BP 139/96; TEMP 99.3; O2SAT 97
[2023-10-10] MEDS ORDERED: MAG HYDROX/AL HYDROX/SIMETH 30 ML UDC PO PRN (23:30)
[2023-10-10] MEDS ORDERED: MAGNESIUM HYDROXIDE 30 ML UDC PO PRN (23:30)
[2023-10-10] MEDS ORDERED: Z GUARD REMEDY 4 OZ OINT TP PRN (23:30)
[2023-10-10] MEDS ORDERED: ACETAMINOPHEN 325 MG TABLET PO PRN (23:30)
[2023-10-10] MEDS: ONDANSETRON HCL/PF 4 MG/2 ML VIAL IVP PRN (23:52)
[2023-10-11] MEDS: IV 1/2NS 1000 ML 1,000 ML IV PRN (00:06)
[2023-10-11] MEDS ORDERED: ACETAMINOPHEN 325 MG TABLET PO PRN (01:30)
[2023-10-11 02:15] LABS: BASOPHILS % (AUTO) 0.3 % (0.0-2.0); EOSINOPHILS % (AUTO) 0.2 % (0.0-6.0); HEMATOCRIT 45 % (39-51); HEMOGLOBIN 13.9 g/dL (13.5-17.5); LYMPHOCYTES # (AUTO) 0.8 K/uL (0.8-4.8); MEAN CORPUSCULAR HEMOGLOBIN 25 PG (26.0-33.0); MEAN CORPUSCULAR HGB CONC 31 g/dl (31.0-36.0); MEAN CORPUSCULAR VOLUME 82 fL (80-96); MONOCYTES % (AUTO) 8.9 % (2.0-12.0); NEUTROPHILS # (AUTO) 9.8 K/uL (1.8-8.9); NEUTROPHILS % (AUTO) 83.6 % (43.0-81.0); PLATELET COUNT (AUTO) 555 K/uL (150-450); WHITE BLOOD COUNT (AUTO) 11.8 K/uL (4.3-11.0)
[2023-10-11 02:41] LABS: CALCIUM, SERUM 8.6 mg/dL (8.5-10.1); CARBON DIOXIDE 23 mmol/L (21-32); CHLORIDE 112 mmol/L (98-107); CREATININE 1.5 mg/dL (0.6-1.3); GLUCOSE 144 mg/dL (74-106); PHOSPHORUS 4.6 mg/dL (2.5-4.9); POTASSIUM 3.5 mmol/L (3.5-5.1); SODIUM SERUM 143 mmol/L (136-145); UREA NITROGEN, BLOOD 37 mg/dL (7-18)
[2023-10-11 02:44] LABS: THYROID STIMULATING HORMONE 1.324 uIU/mL (0.358-3.74)
[2023-10-11 04:23] VITALS: BP 130/100; TEMP 98.5; O2SAT 100
[2023-10-11] MEDS: METOCLOPRAMIDE HCL 10 MG/2 ML VIAL IV PRN (04:30)
[2023-10-11 08:00] VITALS: BP 116/58; TEMP 99.5; O2SAT 95
[2023-10-11] MEDS ORDERED: ONDA-97 PO (08:19)
[2023-10-11] MEDS ORDERED: SUCR1TAB PO (08:19)
[2023-10-11] MEDS ORDERED: MAG30ORA PO (08:19)
[2023-10-11] MEDS ORDERED: PANT40TA49 PO (08:19)
[2023-10-11] MEDS ORDERED: DOCU100T2 PO (08:19)
[2023-10-11] MEDS ORDERED: ACET-868 PO (08:19)
[2023-10-11] MEDS ORDERED: MAGN400O6 PO (08:19)
[2023-10-11] MEDS ORDERED: CEFT1VIA14 IV (08:19)
[2023-10-11] MEDS: PANTOPRAZOLE 40 MG VIAL IV SCH (08:35)
[2023-10-11] MEDS ORDERED: Medication Not On Formulary EA (Atorvastatin Calcium (Lipitor) 20 MG) PO SCH (09:00)
[2023-10-11] MEDS: METHIMAZOLE (5MG) 5 MG TABLET PO SCH (09:00)
[2023-10-11] MEDS ORDERED: Medication Not On Formulary EA (Cran/Vitc/Mannose/Inulin/Brom (Uti-Stat Liquid) 30 ML) PO SCH (09:00)
[2023-10-11] MEDS: CARVEDILOL 12.5 MG TABLET PO SCH (09:00)
[2023-10-11] MEDS: LOSARTAN POTASSIUM 50 MG TABLET PO SCH (09:00)
[2023-10-11] MEDS: ATORVASTATIN 10 MG TABLET PO SCH (09:00)
[2023-10-11 16:00] VITALS: BP 121/74; TEMP 99.1; O2SAT 95
[2023-10-11 20:00] VITALS: BP 115/64; TEMP 98.6; O2SAT 96
[2023-10-11] MEDS: NIFEDIPINE XL 60 MG TAB.ER.24 PO SCH (22:00)
[2023-10-11] MEDS: DONEPEZIL 5 MG TABLET PO SCH (22:00)
[2023-10-11] MEDS: TAMSULOSIN 0.4 MG CAP.SR.24H PO SCH (22:00)
[2023-10-12 07:24] LABS: BASOPHILS # (AUTO) 0.1 K/uL (0.0-0.2); EOSINOPHILS # (AUTO) 0.5 K/uL (0.0-0.7); EOSINOPHILS % (AUTO) 5.8 % (0.0-6.0); HEMATOCRIT 35 % (39-51); HEMOGLOBIN 11.2 g/dL (13.5-17.5); LYMPHOCYTES # (AUTO) 1.1 K/uL (0.8-4.8); LYMPHOCYTES % (AUTO) 12.5 % (20.0-44.0); MEAN CORPUSCULAR HEMOGLOBIN 26 PG (26.0-33.0); MEAN CORPUSCULAR HGB CONC 32 g/dl (31.0-36.0); MEAN CORPUSCULAR VOLUME 80 fL (80-96); MONOCYTES # (AUTO) 0.8 K/uL (0.1-1.30); MONOCYTES % (AUTO) 8.8 % (2.0-12.0); NEUTROPHILS # (AUTO) 6.4 K/uL (1.8-8.9); NEUTROPHILS % (AUTO) 71.9 % (43.0-81.0); PLATELET COUNT (AUTO) 487 K/uL (150-450); RED BLOOD CELL COUNT(AUTO) 4.35 MIL/uL (4.5-6.0); RED CELL DISTRIBUTION WIDTH 20.8 % (11.5-15.0); WHITE BLOOD COUNT (AUTO) 8.8 K/uL (4.3-11.0)
[2023-10-12 07:57] LABS: ALANINE AMINOTRANSFERASE 50 U/L (12-78); ALBUMIN 2.4 g/dL (3.4-5.0); ALKALINE PHOSPHATASE 62 U/L (46-116); ASPARTATE AMINOTRANSFERASE 28 U/L (15-37); BILIRUBIN,TOTAL 0.8 mg/dL (0.2-1.0); CALCIUM, SERUM 7.8 mg/dL (8.5-10.1); CARBON DIOXIDE 28 mmol/L (21-32); CHLORIDE 112 mmol/L (98-107); CREATININE 1.4 mg/dL (0.6-1.3); GLUCOSE 97 mg/dL (74-106); MAGNESIUM 1.9 mg/dL (1.8-2.4); PHOSPHORUS 3.3 mg/dL (2.5-4.9); SODIUM SERUM 147 mmol/L (136-145); TOTAL PROTEIN, SERUM 5.8 g/dL (6.4-8.2); UREA NITROGEN, BLOOD 41 mg/dL (7-18)
[2023-10-12 08:00] VITALS: BP 163/71; TEMP 98.4; O2SAT 96
[2023-10-12 08:24] LABS: CREATINE KINASE, TOTAL 25 U/L (39-308)
[2023-10-12] MEDS: IV D5/0.45 NACL 1,000 ML IV PRN (08:49)
[2023-10-12] MEDS: POTASSIUM CL. PREMIX PERIPHER. 50 ML IV SCH (09:44)
[2023-10-12] MEDS ORDERED: POTASSIUM CL. PREMIX PERIPHER. 50 ML IV SCH (12:00)
[2023-10-12 16:00] VITALS: BP 114/94; TEMP 98.6; O2SAT 95
[2023-10-12 20:00] VITALS: BP 166/85; TEMP 98.8; O2SAT 96
[2023-10-12] MEDS: hydrALAZINE HCL IV 20 MG VIAL IV PRN (22:47)
[2023-10-13 07:12] LABS: CALCIUM, SERUM 8.3 mg/dL (8.5-10.1); CREATININE 0.9 mg/dL (0.6-1.3); POTASSIUM 3.5 mmol/L (3.5-5.1)
[2023-10-13 08:00] VITALS: BP 150/86; TEMP 97.9; O2SAT 99
[2023-10-13 08:03] LABS: BASOPHILS # (AUTO) 0.1 K/uL (0.0-0.2); BASOPHILS % (AUTO) 0.8 % (0.0-2.0); EOSINOPHILS # (AUTO) 0.5 K/uL (0.0-0.7); HEMATOCRIT 39 % (39-51); HEMOGLOBIN 12.4 g/dL (13.5-17.5); LYMPHOCYTES # (AUTO) 1.1 K/uL (0.8-4.8); LYMPHOCYTES % (AUTO) 15.2 % (20.0-44.0); MEAN CORPUSCULAR HEMOGLOBIN 26 PG (26.0-33.0); MEAN CORPUSCULAR HGB CONC 32 g/dl (31.0-36.0); MEAN CORPUSCULAR VOLUME 80 fL (80-96); MONOCYTES # (AUTO) 0.6 K/uL (0.1-1.30); MONOCYTES % (AUTO) 7.9 % (2.0-12.0); NEUTROPHILS # (AUTO) 5.2 K/uL (1.8-8.9); NEUTROPHILS % (AUTO) 69.1 % (43.0-81.0); PLATELET COUNT (AUTO) 508 K/uL (150-450); RED BLOOD CELL COUNT(AUTO) 4.81 MIL/uL (4.5-6.0); RED CELL DISTRIBUTION WIDTH 20.4 % (11.5-15.0); WHITE BLOOD COUNT (AUTO) 7.6 K/uL (4.3-11.0)
[2023-10-13 09:09] LABS: PTH, INTACT 13 pg/mL (15-65)
[2023-10-13 10:07] LABS: *SPE ALBUMIN 2.7 g/dL (2.9-4.4); *SPE ALPHA-1-GLOBULIN 0.3 g/dL (0.0-0.4); *SPE ALPHA-2-GLOBULIN 0.6 g/dL (0.4-1.0); *SPE BETA GLOBULIN 0.8 g/dL (0.7-1.3); *SPE GLOBULIN, TOTAL 2.8 g/dL (2.2-3.9); *SPE M-SPIKE 0.3 g/dL (Not Observed); *SPE PROTEIN TOTAL 5.5 g/dL (6.0-8.5); *SPEGAMMA GLOBULIN 1.1 g/dL (0.4-1.8)
[2023-10-13] MEDS ORDERED: ANESTHESIA TRAY IN PYXIS 1 EA TRAY MC ONE (14:34)
[2023-10-13 16:00] VITALS: BP 204/82; TEMP 99.1; O2SAT 98
[2023-10-13] MEDS ORDERED: METOPROLOL TARTRATE INJ 5 MG/5 ML AMPUL ONE (17:53)
[2023-10-13 20:00] VITALS: BP 153/81; TEMP 98.4; O2SAT 99
[2023-10-13] MEDS: ZOLPIDEM TARTRATE 5 MG TABLET PO PRN (22:21)
[2023-10-14 07:00] VITALS: BP 146/75; TEMP 98.2; O2SAT 100
[2023-10-14] MEDS: PANTOPRAZOLE 40 MG/PACK PACK PO SCH (09:01)
[2023-10-14 09:03] VITALS: BP 146/75
== END 2023-10-14 17:41 | DRG 377 ==
LOC: ER 19:32 → TELE 22:28 → MED 10-11 08:44
PROVIDERS: ADMIT Student in an Organized Health Care Education/Training Program; ATTEND Internal Medicine
PROC: 0DB68ZX Excision of Stomach, Via Natural or Artificial Opening Endoscopic, Diagnostic (ICD-10-PCS; principal; 2023-10-13)
DX: K29.71 Gastritis, unspecified, with bleeding (principal); I21.A1 Myocardial infarction type 2; I50.32 Chronic diastolic (congestive) heart failure; I69.351 Hemiplegia and hemiparesis following cerebral infarction affecting right dominant side; E44.0 Moderate protein-calorie malnutrition; G93.40 Encephalopathy, unspecified; N17.9 Acute kidney failure, unspecified; K44.9 Diaphragmatic hernia without obstruction or gangrene; I11.0 Hypertensive heart disease with heart failure; Z86.718 Personal history of other venous thrombosis and embolism; E83.89 Other disorders of mineral metabolism; I25.10 Atherosclerotic heart disease of native coronary artery without angina pectoris; E78.5 Hyperlipidemia, unspecified; M81.0 Age-related osteoporosis without current pathological fracture; E05.90 Thyrotoxicosis, unspecified without thyrotoxic crisis or storm; N40.0 Benign prostatic hyperplasia without lower urinary tract symptoms; F03.90 Unspecified dementia, unspecified severity, without behavioral disturbance, psychotic disturbance, mood disturbance, and anxiety; M89.8X9 Other specified disorders of bone, unspecified site; Z66 Do not resuscitate; E78.00 Pure hypercholesterolemia, unspecified; Z79.02 Long term (current) use of antithrombotics/antiplatelets; Z79.01 Long term (current) use of anticoagulants; Z79.899 Other long term (current) drug therapy; Z79.82 Long term (current) use of aspirin; E03.9 Hypothyroidism, unspecified; D64.9 Anemia, unspecified
CPT/HCPCS: 36415; 71045-TC; 76770-TC; 80048-TC; 80053-TC; 80076-TC; 82550-TC; 83735-TC; 83970; 84100-TC; 84155; 84165; 84443-TC; 84484-TC; 85025-TC; 85027-TC; 85730-TC; 86850-TC; 88305-TC; 88313-TC; 88342; A4223; C9113; G0378; J0360; J2405; J2704; J2765; J3480; J3490; J7030

== ENCOUNTER 2024-01-31 03:36 | Inpatient (IN) | payer MEDICARE, OTHER ==
[~2024-01-31] VITALS: Ht 172.7 cm; Wt 60.3 kg
[~2024-01-31 03:36] MED LIST changes: -ASPI-1169 PO; -CEFT1VIA15 IV; -CLOP75TA15 PO; +DOCU100T2 PO; -FURO-144 PO; +MAG30ORA PO; +MAGN400O6 PO; +ONDA-97 PO; +PANT40TA49 PO; +SUCR1TAB PO
[2024-01-31 05:18] LABS: BASOPHILS # (AUTO) 0.1 K/uL (0.0-0.2); BASOPHILS % (AUTO) 1.4 % (0.0-2.0); EOSINOPHILS # (AUTO) 0.5 K/uL (0.0-0.7); EOSINOPHILS % (AUTO) 7.3 % (0.0-6.0); HEMATOCRIT 39 % (39-51); HEMOGLOBIN 12.4 g/dL (13.5-17.5); LYMPHOCYTES # (AUTO) 1.3 K/uL (0.8-4.8); LYMPHOCYTES % (AUTO) 19.5 % (20.0-44.0); MEAN CORPUSCULAR HEMOGLOBIN 23 PG (26.0-33.0); MEAN CORPUSCULAR HGB CONC 32 g/dl (31.0-36.0); MEAN CORPUSCULAR VOLUME 71 fL (80-96); MONOCYTES # (AUTO) 0.4 K/uL (0.1-1.30); MONOCYTES % (AUTO) 6.9 % (2.0-12.0); NEUTROPHILS # (AUTO) 4.2 K/uL (1.8-8.9); NEUTROPHILS % (AUTO) 64.9 % (43.0-81.0); PLATELET COUNT (AUTO) 526 K/uL (150-450); RED BLOOD CELL COUNT(AUTO) 5.44 MIL/uL (4.5-6.0); RED CELL DISTRIBUTION WIDTH 18.2 % (11.5-15.0); WHITE BLOOD COUNT (AUTO) 6.5 K/uL (4.3-11.0)
[2024-01-31 05:31] LABS: CALCIUM, SERUM 8.7 mg/dL (8.5-10.1); CARBON DIOXIDE 28 mmol/L (21-32); CHLORIDE 102 mmol/L (98-107); CREATININE 0.9 mg/dL (0.6-1.3); GLUCOSE 105 mg/dL (74-106); POTASSIUM 3.5 mmol/L (3.5-5.1); SODIUM SERUM 138 mmol/L (136-145); UREA NITROGEN, BLOOD 14 mg/dL (7-18)
[2024-01-31 05:46] LABS: ALANINE AMINOTRANSFERASE 10 U/L (12-78); ALBUMIN 2.8 g/dL (3.4-5.0); ALKALINE PHOSPHATASE 95 U/L (46-116); ASPARTATE AMINOTRANSFERASE 13 U/L (15-37); BILIRUBIN,TOTAL 0.7 mg/dL (0.2-1.0); NT-PRO BNP 213 pg/mL (0-125); TOTAL PROTEIN, SERUM 7.4 g/dL (6.4-8.2)
[2024-01-31] MEDS ORDERED: Z GUARD REMEDY 4 OZ OINT TP PRN (06:30)
[2024-01-31] MEDS ORDERED: MAG HYDROX/AL HYDROX/SIMETH 30 ML UDC PO PRN (06:30)
[2024-01-31] MEDS ORDERED: MAGNESIUM HYDROXIDE 30 ML UDC PO PRN (06:30)
[2024-01-31 06:42] LABS: BASOPHILS # (AUTO) 0.1 K/uL (0.0-0.2); EOSINOPHILS # (AUTO) 0.4 K/uL (0.0-0.7); EOSINOPHILS % (AUTO) 5.9 % (0.0-6.0); HEMATOCRIT 40 % (39-51); HEMOGLOBIN 12.3 g/dL (13.5-17.5); LYMPHOCYTES % (AUTO) 14.2 % (20.0-44.0); MEAN CORPUSCULAR HEMOGLOBIN 22 PG (26.0-33.0); MEAN CORPUSCULAR HGB CONC 31 g/dl (31.0-36.0); MEAN CORPUSCULAR VOLUME 71 fL (80-96); MONOCYTES # (AUTO) 0.5 K/uL (0.1-1.30); MONOCYTES % (AUTO) 6.8 % (2.0-12.0); NEUTROPHILS # (AUTO) 5.1 K/uL (1.8-8.9); NEUTROPHILS % (AUTO) 72.1 % (43.0-81.0); PLATELET COUNT (AUTO) 466 K/uL (150-450); RED CELL DISTRIBUTION WIDTH 18.1 % (11.5-15.0); WHITE BLOOD COUNT (AUTO) 7.1 K/uL (4.3-11.0)
[2024-01-31 06:51] LABS: CALCIUM, SERUM 8.5 mg/dL (8.5-10.1); CARBON DIOXIDE 30 mmol/L (21-32); CHLORIDE 101 mmol/L (98-107); CREATININE 0.9 mg/dL (0.6-1.3); GLUCOSE 97 mg/dL (74-106); MAGNESIUM 2.1 mg/dL (1.8-2.4); PHOSPHORUS 3.8 mg/dL (2.5-4.9); POTASSIUM 2.9 mmol/L (3.5-5.1); SODIUM SERUM 139 mmol/L (136-145); UREA NITROGEN, BLOOD 14 mg/dL (7-18)
[2024-01-31] MEDS: PANTOPRAZOLE 40 MG TABLET.DR PO SCH (07:30)
[2024-01-31] MEDS ORDERED: NA P133E RC (07:45)
[2024-01-31] MEDS ORDERED: MELA1TAB27 PO (07:45)
[2024-01-31] MEDS: IV NS 0.9% 1,000 ML IV PRN (08:43)
[2024-01-31] MEDS: CEFTRIAXONE 1 G in IV D5W 50 ML IV ONE (08:46)
[2024-01-31] MEDS: CELLULOSE,OXIDIZED 1 EACH EACH MC ONE ×2 (08:46→11:05)
[2024-01-31 09:00] VITALS: BP 125/78; TEMP 98.8; O2SAT 98
[2024-01-31] MEDS ORDERED: CELLULOSE,OXIDIZED 1 EACH EACH MC ONE (09:00)
[2024-01-31] MEDS: CELLULOSE,OXIDIZED 1 EA PACK MC ONE (09:13)
[2024-01-31 09:15] VITALS: BP 178/97; TEMP 98.2; O2SAT 97
[2024-01-31] MEDS: POTASSIUM CL. PREMIX PERIPHER. 50 ML IV SCH (10:04)
[2024-01-31] MEDS: THERAHONEY GEL 1.5 OZ TUBE TP SCH ×2 (10:04→12:18)
[2024-01-31 10:52] LABS: HEMATOCRIT 34 % (39-51); HEMOGLOBIN 10.7 g/dL (13.5-17.5); MEAN CORPUSCULAR HEMOGLOBIN 22 PG (26.0-33.0); MEAN CORPUSCULAR HGB CONC 32 g/dl (31.0-36.0); MEAN CORPUSCULAR VOLUME 70 fL (80-96); PLATELET COUNT (AUTO) 543 K/uL (150-450); RED BLOOD CELL COUNT(AUTO) 4.79 MIL/uL (4.5-6.0); RED CELL DISTRIBUTION WIDTH 18.2 % (11.5-15.0); WHITE BLOOD COUNT (AUTO) 7.3 K/uL (4.3-11.0)
[2024-01-31] MEDS ORDERED: SILVER NITRATE APPLICATOR 1 EA BOX TP PRN (11:30)
[2024-01-31 12:00] VITALS: BP 137/82; TEMP 98.5; O2SAT 98
[2024-01-31 16:00] VITALS: BP 155/87; TEMP 98.1; O2SAT 98
[2024-01-31 20:00] VITALS: BP 146/68; TEMP 98.2; O2SAT 98
[2024-01-31] MEDS ORDERED: ZOLPIDEM TARTRATE 5 MG TABLET PO PRN (22:00)
[2024-01-31] MEDS: ACETAMINOPHEN 325 MG TABLET PO PRN (22:59)
[2024-02-01 04:00] VITALS: BP 117/60; TEMP 98.2; O2SAT 100
[2024-02-01 06:42] LABS: BASOPHILS # (AUTO) 0.1 K/uL (0.0-0.2); EOSINOPHILS # (AUTO) 0.4 K/uL (0.0-0.7); HEMATOCRIT 25 % (39-51); HEMOGLOBIN 7.9 g/dL (13.5-17.5); LYMPHOCYTES # (AUTO) 1.5 K/uL (0.8-4.8); LYMPHOCYTES % (AUTO) 20.5 % (20.0-44.0); MEAN CORPUSCULAR HEMOGLOBIN 23 PG (26.0-33.0); MEAN CORPUSCULAR HGB CONC 32 g/dl (31.0-36.0); MEAN CORPUSCULAR VOLUME 70 fL (80-96); MONOCYTES # (AUTO) 0.6 K/uL (0.1-1.30); NEUTROPHILS # (AUTO) 4.6 K/uL (1.8-8.9); NEUTROPHILS % (AUTO) 64.5 % (43.0-81.0); PLATELET COUNT (AUTO) 427 K/uL (150-450); WHITE BLOOD COUNT (AUTO) 7.2 K/uL (4.3-11.0)
[2024-02-01 07:04] LABS: CALCIUM, SERUM 7.7 mg/dL (8.5-10.1); CARBON DIOXIDE 30 mmol/L (21-32); CHLORIDE 105 mmol/L (98-107); CREATININE 1.5 mg/dL (0.6-1.3); GLUCOSE 85 mg/dL (74-106); MAGNESIUM 1.9 mg/dL (1.8-2.4); PHOSPHORUS 4.3 mg/dL (2.5-4.9); POTASSIUM 3.3 mmol/L (3.5-5.1); SODIUM SERUM 141 mmol/L (136-145)
[2024-02-01 08:00] VITALS: BP 132/64; TEMP 98.2; O2SAT 99
[2024-02-01 08:46] LABS: UREA NITROGEN, BLOOD 28 mg/dL (7-18)
[2024-02-01 12:00] VITALS: BP 138/68; TEMP 98.3; O2SAT 99
[2024-02-01] MEDS: POTASSIUM CHLORIDE 20 MEQ TAB.PRT.SR PO SCH (12:04)
[2024-02-01 16:00] VITALS: BP 156/82; TEMP 98.4; O2SAT 98
[2024-02-01 20:00] VITALS: BP 159/76; TEMP 98.6; O2SAT 98
[2024-02-02] VITALS: BP 159/76; TEMP 98.6; O2SAT 98
[2024-02-02 04:00] VITALS: BP 164/72; TEMP 98.6; O2SAT 98
[2024-02-02 06:39] LABS: BASOPHILS # (AUTO) 0.1 K/uL (0.0-0.2); BASOPHILS % (AUTO) 1.8 % (0.0-2.0); EOSINOPHILS # (AUTO) 0.5 K/uL (0.0-0.7); EOSINOPHILS % (AUTO) 8.4 % (0.0-6.0); HEMATOCRIT 25 % (39-51); HEMOGLOBIN 7.9 g/dL (13.5-17.5); LYMPHOCYTES # (AUTO) 1.5 K/uL (0.8-4.8); LYMPHOCYTES % (AUTO) 24.9 % (20.0-44.0); MEAN CORPUSCULAR HEMOGLOBIN 23 PG (26.0-33.0); MEAN CORPUSCULAR HGB CONC 32 g/dl (31.0-36.0); MEAN CORPUSCULAR VOLUME 71 fL (80-96); MONOCYTES # (AUTO) 0.4 K/uL (0.1-1.30); MONOCYTES % (AUTO) 7.4 % (2.0-12.0); NEUTROPHILS # (AUTO) 3.4 K/uL (1.8-8.9); NEUTROPHILS % (AUTO) 57.5 % (43.0-81.0); PLATELET COUNT (AUTO) 302 K/uL (150-450); RED BLOOD CELL COUNT(AUTO) 3.49 MIL/uL (4.5-6.0)
[2024-02-02 07:13] LABS: CALCIUM, SERUM 8.2 mg/dL (8.5-10.1); CARBON DIOXIDE 28 mmol/L (21-32); CHLORIDE 107 mmol/L (98-107); CREATININE 0.9 mg/dL (0.6-1.3); GLUCOSE 92 mg/dL (74-106); POTASSIUM 3.2 mmol/L (3.5-5.1); SODIUM SERUM 140 mmol/L (136-145); UREA NITROGEN, BLOOD 15 mg/dL (7-18)
[2024-02-02 08:00] VITALS: BP 152/79; TEMP 98.2; O2SAT 98
[2024-02-02] MEDS: POTASSIUM CHLORIDE 20 MEQ TAB.PRT.SR PO ONE (08:24)
[2024-02-02] MEDS: CEFTRIAXONE 1 G in IV D5W 50 ML IV SCH (10:20)
[2024-02-02 12:00] VITALS: BP 157/82; TEMP 98.4; O2SAT 83
[2024-02-02] MEDS: CLONIDINE HCL 0.1 MG TABLET PO PRN (15:37)
[2024-02-02 16:00] VITALS: BP 184/90; TEMP 98; O2SAT 98
[2024-02-02 20:32] VITALS: BP 154/78; TEMP 98; O2SAT 98
[2024-02-03 04:00] VITALS: BP 176/69; TEMP 98.1; O2SAT 98
[2024-02-03 06:50] LABS: BASOPHILS # (AUTO) 0.1 K/uL (0.0-0.2); EOSINOPHILS # (AUTO) 0.6 K/uL (0.0-0.7); EOSINOPHILS % (AUTO) 8.1 % (0.0-6.0); HEMATOCRIT 24 % (39-51); HEMOGLOBIN 7.4 g/dL (13.5-17.5); LYMPHOCYTES # (AUTO) 1.6 K/uL (0.8-4.8); LYMPHOCYTES % (AUTO) 22.5 % (20.0-44.0); MEAN CORPUSCULAR HEMOGLOBIN 22 PG (26.0-33.0); MEAN CORPUSCULAR HGB CONC 31 g/dl (31.0-36.0); MEAN CORPUSCULAR VOLUME 71 fL (80-96); MONOCYTES # (AUTO) 0.6 K/uL (0.1-1.30); MONOCYTES % (AUTO) 9.4 % (2.0-12.0); NEUTROPHILS # (AUTO) 4.1 K/uL (1.8-8.9); PLATELET COUNT (AUTO) 339 K/uL (150-450); RED BLOOD CELL COUNT(AUTO) 3.34 MIL/uL (4.5-6.0); RED CELL DISTRIBUTION WIDTH 17.8 % (11.5-15.0); WHITE BLOOD COUNT (AUTO) 6.9 K/uL (4.3-11.0)
[2024-02-03 07:03] LABS: CALCIUM, SERUM 7.7 mg/dL (8.5-10.1); CARBON DIOXIDE 24 mmol/L (21-32); CHLORIDE 107 mmol/L (98-107); CREATININE 0.8 mg/dL (0.6-1.3); GLUCOSE 90 mg/dL (74-106); POTASSIUM 3.3 mmol/L (3.5-5.1); SODIUM SERUM 142 mmol/L (136-145); UREA NITROGEN, BLOOD 11 mg/dL (7-18)
[2024-02-03 08:00] VITALS: BP 174/58; TEMP 98.6; O2SAT 98
[2024-02-03] MEDS: POTASSIUM CHLORIDE 20 MEQ TAB.PRT.SR PO ONE (09:12)
[2024-02-03] MEDS ORDERED: MAGNESIUM HYDROXIDE 30 ML UDC PO PRN (10:30)
[2024-02-03] MEDS ORDERED: NA PHOS,M-B/NA PHOS,DI-BA 1 EA ENEMA RC PRN (10:30)
[2024-02-03] MEDS ORDERED: BISACODYL SUPP (10 MG) 10 MG/SUPP.RECT SUPP.RECT RC PRN (10:30)
[2024-02-03] MEDS ORDERED: ACETAMINOPHEN 325 MG TABLET PO PRN (10:30)
[2024-02-03] MEDS: CARVEDILOL 12.5 MG TABLET PO SCH (11:09)
[2024-02-03] MEDS: LOSARTAN POTASSIUM 50 MG TABLET PO SCH (11:10)
[2024-02-03 11:45] VITALS: BP 158/84
[2024-02-03] MEDS: SUCRALFATE 1 G TABLET PO SCH (12:14)
[2024-02-03] MEDS: PANTOPRAZOLE 40 MG TABLET.DR PO SCH (16:41)
[2024-02-03] MEDS ORDERED: CARVEDILOL 12.5 MG TABLET PO SCH (17:00)
[2024-02-03 17:10] VITALS: BP 160/74
[2024-02-03 20:00] VITALS: BP 157/72; TEMP 99.3; O2SAT 98
[2024-02-03] MEDS: TAMSULOSIN 0.4 MG CAP.SR.24H PO SCH (21:06)
[2024-02-03] MEDS: DONEPEZIL 5 MG TABLET PO SCH (21:06)
[2024-02-03] MEDS: NIFEDIPINE XL 60 MG TAB.ER.24 PO SCH (21:06)
[2024-02-03] MEDS: FUROSEMIDE 20 MG TABLET PO SCH (21:06)
[2024-02-04 04:00] VITALS: BP 141/66; TEMP 99; O2SAT 98
[2024-02-04 08:00] VITALS: BP 159/68; TEMP 98.1; O2SAT 97
[2024-02-04] MEDS: METHIMAZOLE (5MG) 5 MG TABLET PO SCH (08:13)
[2024-02-04] MEDS: DOCUSATE SODIUM 100 MG CAPSULE PO SCH (08:13)
[2024-02-04] MEDS: PANTOPRAZOLE 40 MG/PACK PACK GT SCH (08:39)
[2024-02-04 16:00] VITALS: BP 159/83; TEMP 98.1; O2SAT 99
[2024-02-04 20:00] VITALS: BP 180/77; TEMP 99; O2SAT 98
[2024-02-05 04:00] VITALS: BP 134/73; TEMP 98.5; O2SAT 95
[2024-02-05 06:33] LABS: BASOPHILS # (AUTO) 0.1 K/uL (0.0-0.2); BASOPHILS % (AUTO) 1.2 % (0.0-2.0); EOSINOPHILS # (AUTO) 0.4 K/uL (0.0-0.7); EOSINOPHILS % (AUTO) 6.1 % (0.0-6.0); HEMATOCRIT 24 % (39-51); HEMOGLOBIN 7.7 g/dL (13.5-17.5); LYMPHOCYTES # (AUTO) 1.1 K/uL (0.8-4.8); MEAN CORPUSCULAR HEMOGLOBIN 23 PG (26.0-33.0); MEAN CORPUSCULAR HGB CONC 32 g/dl (31.0-36.0); MEAN CORPUSCULAR VOLUME 70 fL (80-96); MONOCYTES # (AUTO) 0.6 K/uL (0.1-1.30); MONOCYTES % (AUTO) 9.2 % (2.0-12.0); NEUTROPHILS % (AUTO) 65.5 % (43.0-81.0); PLATELET COUNT (AUTO) 452 K/uL (150-450); RED BLOOD CELL COUNT(AUTO) 3.42 MIL/uL (4.5-6.0); RED CELL DISTRIBUTION WIDTH 18.2 % (11.5-15.0); WHITE BLOOD COUNT (AUTO) 6.1 K/uL (4.3-11.0)
[2024-02-05] MEDS: POTASSIUM CHLORIDE 20 MEQ TAB.PRT.SR PO ONE (07:50)
[2024-02-05 08:00] VITALS: BP 140/74; TEMP 98.9; O2SAT 98
[2024-02-05] MEDS: PROSOURCE / PROSTAT (PYXIS) 30 ML UDC PO SCH (12:16)
[2024-02-05 16:00] VITALS: BP 151/79; TEMP 98.1; O2SAT 98
[2024-02-05] MEDS: ARGININE/GLUTAMINE/CALCIUM BMB 1 EACH POWD.PACK PO SCH (16:22)
[2024-02-05 20:50] VITALS: BP 166/72; TEMP 98; O2SAT 99
[2024-02-06 04:00] VITALS: BP 156/75; TEMP 98.2; O2SAT 96
[2024-02-06 06:37] LABS: BASOPHILS # (AUTO) 0.1 K/uL (0.0-0.2); BASOPHILS % (AUTO) 1.2 % (0.0-2.0); EOSINOPHILS # (AUTO) 0.5 K/uL (0.0-0.7); EOSINOPHILS % (AUTO) 7.8 % (0.0-6.0); HEMATOCRIT 25 % (39-51); LYMPHOCYTES # (AUTO) 1.2 K/uL (0.8-4.8); LYMPHOCYTES % (AUTO) 18.5 % (20.0-44.0); MEAN CORPUSCULAR HEMOGLOBIN 22 PG (26.0-33.0); MEAN CORPUSCULAR HGB CONC 33 g/dl (31.0-36.0); MEAN CORPUSCULAR VOLUME 69 fL (80-96); MONOCYTES # (AUTO) 0.7 K/uL (0.1-1.30); MONOCYTES % (AUTO) 10.3 % (2.0-12.0); NEUTROPHILS % (AUTO) 62.2 % (43.0-81.0); PLATELET COUNT (AUTO) 408 K/uL (150-450); RED BLOOD CELL COUNT(AUTO) 3.58 MIL/uL (4.5-6.0); WHITE BLOOD COUNT (AUTO) 6.4 K/uL (4.3-11.0)
[2024-02-06 07:07] LABS: CALCIUM, SERUM 8.4 mg/dL (8.5-10.1); CARBON DIOXIDE 36 mmol/L (21-32); CHLORIDE 103 mmol/L (98-107); CREATININE 0.9 mg/dL (0.6-1.3); GLUCOSE 116 mg/dL (74-106); POTASSIUM 2.9 mmol/L (3.5-5.1); SODIUM SERUM 141 mmol/L (136-145); UREA NITROGEN, BLOOD 7 mg/dL (7-18)
[2024-02-06 07:50] LABS: IRON, SERUM 11 ug/dl (50-175); TOTAL IRON BINDING CAPACITY 249 ug/dl (250-450)
[2024-02-06 08:00] VITALS: BP 158/77; TEMP 98.2; O2SAT 99
[2024-02-06] MEDS: POTASSIUM CHLORIDE 20 MEQ TAB.PRT.SR PO ONE (10:42)
[2024-02-06 12:00] VITALS: BP 145/69; TEMP 98.5; O2SAT 99
[2024-02-06] MEDS: SOD FERRIC GLUC 125 MG in IV NS 0.9% 100 ML IV SCH (15:17)
[2024-02-06 20:00] VITALS: BP 154/96; TEMP 98.6; O2SAT 95
[2024-02-07 04:00] VITALS: BP 151/79; TEMP 98.6; O2SAT 96
[2024-02-07 07:22] LABS: BASOPHILS % (AUTO) 0.7 % (0.0-2.0); EOSINOPHILS # (AUTO) 0.4 K/uL (0.0-0.7); EOSINOPHILS % (AUTO) 7.5 % (0.0-6.0); HEMATOCRIT 23 % (39-51); HEMOGLOBIN 7.3 g/dL (13.5-17.5); LYMPHOCYTES % (AUTO) 17.6 % (20.0-44.0); MEAN CORPUSCULAR HEMOGLOBIN 22 PG (26.0-33.0); MEAN CORPUSCULAR HGB CONC 32 g/dl (31.0-36.0); MEAN CORPUSCULAR VOLUME 69 fL (80-96); MONOCYTES # (AUTO) 0.7 K/uL (0.1-1.30); NEUTROPHILS # (AUTO) 3.7 K/uL (1.8-8.9); NEUTROPHILS % (AUTO) 62.2 % (43.0-81.0); PLATELET COUNT (AUTO) 308 K/uL (150-450); RED BLOOD CELL COUNT(AUTO) 3.33 MIL/uL (4.5-6.0); WHITE BLOOD COUNT (AUTO) 5.9 K/uL (4.3-11.0)
[2024-02-07 07:36] LABS: CALCIUM, SERUM 8.4 mg/dL (8.5-10.1); CARBON DIOXIDE 32 mmol/L (21-32); CHLORIDE 103 mmol/L (98-107); GLUCOSE 99 mg/dL (74-106); POTASSIUM 2.8 mmol/L (3.5-5.1); SODIUM SERUM 141 mmol/L (136-145); UREA NITROGEN, BLOOD 13 mg/dL (7-18)
[2024-02-07] MEDS: POTASSIUM CHLORIDE 20 MEQ TAB.PRT.SR PO ONE ×2 (10:05→17:44)
[2024-02-07 12:00] VITALS: BP 116/63; TEMP 98.2; O2SAT 96
[2024-02-07 15:03] LABS: CALCIUM, SERUM 8.2 mg/dL (8.5-10.1); CARBON DIOXIDE 31 mmol/L (21-32); CHLORIDE 103 mmol/L (98-107); CREATININE 0.8 mg/dL (0.6-1.3); GLUCOSE 133 mg/dL (74-106); POTASSIUM 3.4 mmol/L (3.5-5.1); SODIUM SERUM 141 mmol/L (136-145); UREA NITROGEN, BLOOD 13 mg/dL (7-18)
[2024-02-07] MEDS ORDERED: COLL30OI TP (15:41)
[2024-02-07 18:59] VITALS: BP 171/79
[2024-02-07] MEDS: ONDANSETRON HCL/PF 4 MG/2 ML VIAL IVP PRN (18:59)
== END 2024-02-07 19:21 | DRG 662 ==
LOC: ER 03:38 → MEDSG1 07:37
PROVIDERS: ADMIT Internal Medicine; ATTEND Internal Medicine
PROC: 0W3R3ZZ Control Bleeding in Genitourinary Tract, Percutaneous Approach (ICD-10-PCS; 2024-01-31)
PROC: 0JB70ZZ Excision of Back Subcutaneous Tissue and Fascia, Open Approach (ICD-10-PCS; principal; 2024-02-01)
PROC: 0JB70ZZ Excision of Back Subcutaneous Tissue and Fascia, Open Approach (ICD-10-PCS; 2024-02-05)
DX: T83.83XA Hemorrhage due to genitourinary prosthetic devices, implants and grafts, initial encounter (principal); E43 Unspecified severe protein-calorie malnutrition; L89.153 Pressure ulcer of sacral region, stage 3; G93.41 Metabolic encephalopathy; I69.351 Hemiplegia and hemiparesis following cerebral infarction affecting right dominant side; S37.33XA Laceration of urethra, initial encounter; N36.8 Other specified disorders of urethra; I11.0 Hypertensive heart disease with heart failure; I25.10 Atherosclerotic heart disease of native coronary artery without angina pectoris; I50.9 Heart failure, unspecified; Y84.6 Urinary catheterization as the cause of abnormal reaction of the patient, or of later complication, without mention of misadventure at the time of the procedure; Y92.129 Unspecified place in nursing home as the place of occurrence of the external cause; D64.9 Anemia, unspecified; E05.90 Thyrotoxicosis, unspecified without thyrotoxic crisis or storm; E87.6 Hypokalemia; E88.09 Other disorders of plasma-protein metabolism, not elsewhere classified; Z86.718 Personal history of other venous thrombosis and embolism; Z79.01 Long term (current) use of anticoagulants; X58.XXXA Exposure to other specified factors, initial encounter; Y93.9 Activity, unspecified; Z68.20 Body mass index [BMI] 20.0-20.9, adult; S31.21XA Laceration without foreign body of penis, initial encounter; N40.0 Benign prostatic hyperplasia without lower urinary tract symptoms; F03.90 Unspecified dementia, unspecified severity, without behavioral disturbance, psychotic disturbance, mood disturbance, and anxiety
CPT/HCPCS: 36415; 71045-TC; 80048-TC; 80053-TC; 83540-TC; 83605-TC; 83735-TC; 83880; 84100-TC; 84484-TC; 85025-TC; 85027-TC; 87081-TC; A4217; A4223; A6253; A6403; G0378; J0696; J2405; J2916; J3480; J7030; J7050; J7060